=== PATIENT | female | born 1960 | race Caucasian/White ===

== ENCOUNTER 2018-10-18 19:34 | Emergency (ER) | payer OTHER ==
[2018-10-18] MEDS ORDERED: predniSONE TAB* 20 MG PO ONE (19:50)
[2018-10-18] MEDS ORDERED: Albuterol/Ipratropium NEB.SOL* Albuterol 2.5 MG/Ipratropium 0.5 MG 3 ML INH ONE (19:50)
--- NOTE | 2018-10-18 19:59 | ED ---
Respiratory - HPI Summary HPI Summary: 58 yr old female with the complaint of SOB, cough. Onset of URI symptoms cough well over a week ago with sinus congestion. Coughing up yellow sputum. Tmax 100.7 last evening. She has known COPD. She developed worsening SOB this afternoon. She has not used her proventil today. states she takes albuterol without any issues. - History of Current Complaint Chief Complaint: UCRespiratory Stated Complaint: TROUBLE BREATHING Time Seen by Provider: 10/18/18 19:46 Pain Intensity: 0 - Allergy/Home Medications Allergies/Adverse Reactions: Allergies Allergy/AdvReac Type Severity Reaction Status Date / Time Penicillins Allergy Rash Verified 10/18/18 19:45 pseudoephedrine Allergy Anxiety Verified 10/18/18 19:45 [From [facility]] Home Medications: Home Medications Acetaminophen [Tylenol Extra Strength] 1,000 mg PO DAILY 10/18/18 [History Confirmed 10/18/18] Albuterol HFA INHALER* [Ventolin HFA Inhaler*] 2 puff INH Q4H PRN 10/18/18 [ History Confirmed 10/18/18] Ascorbic Acid TAB* [Vitamin C TAB*] 500 mg PO DAILY 10/18/18 [History Confirmed 10/18/18] Aspirin 81 mg CHEW TAB* [Aspirin Low Dose TAB*] 81 mg PO DAILY 10/18/18 [ History Confirmed 10/18/18] Atorvastatin* [Lipitor*] 10 mg PO DAILY 10/18/18 [History Confirmed 10/18/18] Calcium Carbonate [[id number]] 500 mg PO BID 10/18/18 [History Confirmed 10/18] Cetirizine* [ZyrTEC 10 MG TAB*] 10 mg PO DAILY 10/18/18 [History Confirmed 10/18] Cholecalciferol TAB* [Vitamin D TAB*] 2,000 units PO DAILY 10/18/18 [History Confirmed 10/18/18] Cyclobenzaprine TAB* [Flexeril 10 MG TAB*] 5 mg PO BID PRN 10/18/18 [History Confirmed 10/18/18] Dicyclomine CAP* [Bentyl CAP*] 10 mg PO TID 10/18/18 [History Confirmed 10/18/18 ] Fluticasone NASAL SPRAY 50MCG* [Flonase NASAL SPRAY 50MCG*] 2 spray BOTH NARES DAILY 10/18/18 [History Confirmed 10/18/18] Fluticasone-Salmeterol 250-50* [Advair Diskus 250-50*] 1 puff INH BID 10/18/18 [ History Confirmed 10/18/18] Furosemide TAB* [Lasix TAB*] 20 mg PO DAILY 10/18/18 [History Confirmed 10/18/18 ] Gabapentin CAP(*) [Neurontin 300 CAP(*)] 300 mg PO BID 10/18/18 [History Confirmed 10/18/18] Guaifenesin/Pseudoephedrne HCl [Mucinex D ER 600-60 mg Tablet] 2 each PO BID 08/26 [History Confirmed 10/18/18] Lansoprazole SOLUTAB* [Prevacid SOLUTAB*] 30 mg PO BID 10/18/18 [History Confirmed 10/18/18] Lisinopril [Lisinopril 2.5 MG-] 2.5 mg PO DAILY 10/18/18 [History Confirmed 08/26] Lysine 500 mg PO DAILY 10/18/18 [History Confirmed 10/18/18] Multivitamin [Multivitamins] 1 each PO DAILY 10/18/18 [History Confirmed ] Potassium Chlor TAB* [Klor Con ER TAB*] 10 meq PO DAILY 10/18/18 [History Confirmed 10/18/18] Tiotropium CAP.INH* [Spiriva CAP.INH*] 1 cap INH DAILY 10/18/18 [History Confirmed 10/18/18] ValACYclovir (*) [Valtrex 500 mg (*)] 500 mg PO DAILY 10/18/18 [History Confirmed 10/18/18] Vitamin B Complex [Super B-50 Complex] 1 each PO DAILY 10/18/18 [History Confirmed 10/18/18] busPIRone TAB* [Buspar TAB*] 10 mg PO BID 10/18/18 [History Confirmed 10/18/18] glipiZIDE TAB* [Glucotrol TAB*] 2.5 mg PO BID 10/18/18 [History Confirmed ] metFORMIN* [Glucophage 1000 MG TAB *] 1,000 mg PO DAILY 10/18/18 [History Confirmed 10/18/18] PMH/Surg Hx/FS Hx/Imm Hx Endocrine/Hematology History: Reports: Hx Diabetes Denies: Hx Thyroid Disease Cardiovascular History: Reports: Hx Hypertension Respiratory History: Denies: Hx Asthma - Surgical History Surgery Procedure, Year, and Place: knee replacement, tubal ligation, gall bladder Infectious Disease History: No Infectious Disease History: Denies: Traveled Outside the [place] in Last 30 Days - Family History Known Family History: Positive: None - Social History Occupation: Works From/At Home Lives: With Family Alcohol Use: None Substance Use Type: Reports: None Smoking Status (MU): Former Smoker Review of Systems Positive: Fever Positive: Nasal Discharge Positive: Shortness Of Breath, Cough All Other Systems Reviewed And Are Negative: Yes Physical Exam Triage Information Reviewed: Yes Vital Signs On Initial Exam: Initial Vitals Temp Pulse Resp BP Pulse Ox 97.3 F 88 20 122/60 98 10/18/18 19:42 10/18/18 19:42 10/18/18 19:42 10/18/18 19:42 10/18/18 19:42 Vital Signs Reviewed: Yes Appearance: Positive: Well-Appearing, No Pain Distress Skin: Positive: Warm, Skin Color Reflects Adequate Perfusion Eyes: Positive: EOMI ENT: Positive: Pharynx normal, Nasal congestion, Nasal drainage, TMs normal Neck: Positive: Nontender Respiratory/Lung Sounds: Positive: Decreased Breath Sounds - bilateral. Negative: Stridor Cardiovascular: Positive: RRR. Negative: Murmur Abdomen Description: Positive: Nontender Musculoskeletal: Positive: Strength/ROM Intact. Negative: Edema Left, Edema Right Neurological: Positive: Sensory/Motor Intact, Alert, Oriented to Person Place, Time, CN Intact II-III Psychiatric: Positive: Normal - Herbert Coma Scale Best Eye Response: 4 - Spontaneous Best Motor Response: 6 - Obeys Commands Best Verbal Response: 5 - Oriented Coma Scale Total: 15 Diagnostics - Vital Signs Vital Signs Temp Pulse Resp BP Pulse Ox 10/18/18 19:42 97.3 F 88 20 122/60 98 - Laboratory Lab Statement: Any lab studies that have been ordered have been reviewed, and results considered in the medical decision making process. - Radiology chest pa lat Radiology Interpretation Completed By: ED Physician - possible CHF with pulm vasc congestion. - EKG 10/18/18 Cardiac Rate: NL EKG Rhythm: 1st Degree HB ST Segment: Normal Ectopy: None Summary of EKG Findings: No STEMI Disposition - Course Course Of Treatment: 58yr old with CHF on chest xray. DELMY Youssef NP at [facility] for transfer there for further work up. Duoneb had no effect on her SOB. - Diagnoses Provider Diagnoses: CHF (congestive heart failure), Shortness of breath Discharge - Sign-Out/Discharge Documenting (check all that apply): Patient Departure All imaging exams completed and their final reports reviewed: No - Discharge Plan Condition: Good Disposition: TRANS HIGHER LVL OF CARE FAC Referrals: Reinaldo Bates NP [Primary Care Provider] - - Billing Disposition and Condition Condition: GOOD Disposition: Trans Higher Lvl of Care Fac
[2018-10-18 20:41] VITALS: BP 149/112
== END 2018-10-18 20:45 | disposition short-term general hospital (02) ==
LOC: UCCORT 19:34
DX: I50.9 Heart failure, unspecified (principal); R06.02 Shortness of breath; Z88.0 Allergy status to penicillin; Z88.8 Allergy status to other drugs, medicaments and biological substances; E11.9 Type 2 diabetes mellitus without complications; I10 Essential (primary) hypertension; Z79.84 Long term (current) use of oral hypoglycemic drugs; Z87.891 Personal history of nicotine dependence
CPT/HCPCS: 71046; 93005; 99213; A9270-GY; G0463; J7512

== ENCOUNTER 2019-07-13 11:49 | Emergency (ER) | payer OTHER ==
[2019-07-13 12:08] VITALS: BP 132/54
--- NOTE | 2019-07-13 12:13 | UC ---
UC General HPI - HPI Summary HPI Summary: per triage, Pt was at the podiatry office earlier today, and was told BP was elevated and she had a fever. For the past 4 days pt has been feeling more fatigued, has sinus pressure and congestion. [ End ] Pt has been having sinus pain x 5 days and reports "a bloody-green drainage". She is a diabetic and has a hx of sinusitis and this is the same. Her BS is stable. - History of Current Complaint Stated Complaint: FEVER,HEADACHE,FATIGUE Time Seen by Provider: 07/13/19 12:01 Hx Obtained From: Patient Onset/Duration: Gradual Onset Timing: Constant Associated Signs & Symptoms: Negative: Fever - Allergy/Home Medications Allergies/Adverse Reactions: Allergies Allergy/AdvReac Type Severity Reaction Status Date / Time Penicillins Allergy Rash Verified 07/13/19 12:09 pseudoephedrine Allergy Anxiety Ver[facility] 07/13/19 12:09 [facility] PMH/Surg Hx/FS Hx/Imm Hx - Additional Past Medical History Additional PMH: sinusitis Endocrine History: Diabetes Cardiovascular History: Hypertension Respiratory History: COPD GI/ History: Gastroesophageal Reflux Psychological History: Depression - Surgical History Surgical History: Yes Surgery Procedure, Year, and Place: knee replacement, tubal ligation, gall bladder - Family History Known Family History: Positive: None - Social History Alcohol Use: None Substance Use Type: None Smoking Status (MU): Former Smoker Review of Systems All Other Systems Reviewed And Are Negative: Yes Constitutional: Positive: Fatigue. Negative: Fever ENT: Positive: Nasal Discharge, Sinus Congestion, Sinus Pain/Tenderness. Negative: Sore Throat, Ear Ache Respiratory: Negative: Shortness Of Breath, Cough Gastrointestinal: Negative: Abdominal Pain, Vomiting, Diarrhea, Nausea Genitourinary: Negative: Dysuria Neurological: Positive: Headache Physical Exam Triage Information Reviewed: Yes Appearance: Well-Appearing Vital Signs Reviewed: Yes Eyes: Positive: Conjunctiva Clear ENT: Positive: Pharynx normal, Nasal congestion, Nasal drainage - yellow, TMs normal, Sinus tenderness Neck: Positive: Supple, Nontender, No Lymphadenopathy Respiratory: Positive: Lungs clear, Normal breath sounds, No respiratory distress Cardiovascular: Positive: RRR, No Murmur Abdomen Description: Positive: Nontender Neurological: Positive: Alert Psychological: Positive: Age Appropriate Behavior Skin Exam: Normal Course/Dx - Diagnoses Provider Diagnosis: Sinusitis Discharge ED - Sign-Out/Discharge Documenting (check all that apply): Patient Departure All imaging exams completed and their final reports reviewed: No Studies - Discharge Plan Condition: Stable Disposition: HOME Prescriptions: DOXYcycline CAP(*) [DOXYcycline 100MG CAP(*)] 100 mg PO BID 10 Days #20 cap Patient Education Materials: Sinusitis (ED) Referrals: eRinaldo Bates NP [Primary Care Provider] - 7 Days - Billing Disposition and Condition Condition: STABLE Disposition: Home
== END 2019-07-13 12:23 | disposition home or self-care (01) ==
LOC: UCCORT 11:49
DX: J32.9 Chronic sinusitis, unspecified (principal); E11.9 Type 2 diabetes mellitus without complications; I10 Essential (primary) hypertension; Z87.891 Personal history of nicotine dependence
CPT/HCPCS: 99212; G0463

== ENCOUNTER 2019-10-21 18:53 | Emergency (ER) | payer OTHER ==
--- OUTSIDE RECORDS SUMMARY | 2019-10-21 19:02 | XMS REPORT | Summary of Care ---
:1960 Author Organization [facility] Address [address] [place] [address] Care Team Providers Name Role Phone None, Dolores Primary Care Provider Unavailable Reason for Referral Refer to Department Only (Routine) Status Reason Specialty Diagnoses / Referred By Referred To Procedures Contact Contact Authorized AUDIOLOGY & Diagnoses Hearing loss, unspecified hearing loss type, unspecified laterality Richard Song, SPEECH [facility] [place] [address] Scheduling Instructions Please schedule with Dr. Amezquita in [place] (Routine) Status Reason Specialty Diagnoses / Referred By Referred To Procedures Contact Contact Pending Review Diagnoses Diabetes mellitus without complication (HCC) Well adult exam Richard Song, Procedures URINALYSIS (LAB) WITH REFLEX CULTURE [address] [place] [id number] Reason for Visit Reason Comments New Patient pt present today to establish care, no problems, COPD Encounter Details Date Type Department Care Team Description 09/27/2019 Office Visit Richard Maria Diabetes mellitus without complication (HCC) (Primary Dx); Practice MD Decompensated chronic obstructive pulmonary disease (HCC); [address] Well adult exam; [place] [address] [place] [address] Hearing loss, unspecified hearing loss type, unspecified laterality; [phone] Lower extremity edema; [phone] Need for hepatitis C screening test (Fax) Allergies Active Allergy Reactions Severity Noted Date Comments Penicillins Rash High 09/27/2019 documented as of this encounter (statuses as of 09/27/2019) Medications Medication Sig Dispensed Refills Start Date End Date Status atorvastatin (LIPITOR) Take by mouth 0 Active 20 MG Oral Tab DAILY. Gabapentin 300 MG/6ML Take by mouth. 0 Active Oral Solution glipiZIDE (GLUCOTROL Take 2.5 mg by 0 Active XL) 2.5 MG Oral TABLET mouth DAILY. SR 24 HR Aspirin 81 MG Oral Tab Take 81 mg by 0 Active mouth. furosemide (LASIX) 20 Take 20 mg by 0 Active MG Oral Tab mouth DAILY. B Take by mouth. 0 Active Ultopiw-J-Hbkdic-D-Zinc -FA (VITAL-D RX PO) metFORMIN HCL 1000 MG Take by mouth. 0 Active Oral Tab potassium Take 15 mL by 0 Active citrate-citric acid mouth DAILY. (POLYCITRA-K) 1100-334 MG/5ML Oral Solution lisinopril (PRINIVIL, Take 2.5 mg by 0 Active ZESTRIL) 2.5 MG Oral mouth DAILY. Tab Dicyclomine HCl 10 Take by mouth. 0 Active MG/5ML Oral Solution SUPER B COMPLEX/C PO Take by mouth. 0 Active Cholecalciferol Take by mouth. 0 Active (VITAMIN D3) 1.25 MG (00257 UT) Oral Cap Pediatric Take by mouth. 0 Active Multivitamins-Fl (MULTI VIT/FL) 0.25 MG Oral Chew Tab Lansoprazole 15 MG Oral Take 15 mg by 0 Active CAPSULE DELAYED RELEASE mouth. sitagliptin (JANUVIA) Take 100 mg by 0 Active 100 MG Oral Tab mouth. CETIRIZINE HCL PO Take by mouth. 0 Active busPIRone (BUSPAR) 10 Take 10 mg by 0 Active MG Oral Tab mouth THREE TIMES DAILY. FLUTICASONE FUROATE IN Take by 0 Active inhalation. albuterol HFA (VENTOLIN Take 2 Puffs by 0 Active HFA) 108 (90 Base) inhalation. MCG/ACT Inhalation Aero Soln ALBUTEROL IN Take by 0 Active inhalation. Tiotropium [place] Take by 0 Active Monohydrate (SPIRIVA inhalation. HANDIHALER IN) fluticasone-salmeterol Take 1 INHL by 0 Active diskus (ADVAIR) 100-50 inhalation TWICE MCG/DOSE Inhalation DAILY. AEROSOL POWDER, BREATH ACTIVATED documented as of this encounter (statuses as of 09/27/2019) Active Problems Problem Noted Date Decompensated chronic obstructive pulmonary disease 09/27/2019 Diabetes mellitus without complication 09/27/2019 Anxiety 09/27/2019 Chronic pain 09/27/2019 Benign hypertension 09/27/2019 Bilateral edema of lower extremity 09/27/2019 Allergies 09/27/2019 Mixed hyperlipidemia 09/27/2019 documented as of this encounter (statuses as of 09/27/2019) Social History Tobacco Use Types Packs/Day Years Used Date Former Smoker 0 20 Smokeless Tobacco: Never Used Alcohol Use Drinks/Week oz/Week Comments Yes social Sex Assigned at Date Recorded Not on file Job Start Date Occupation Industry Not on file Not on file Not on file Travel History Travel Start Travel End No recent travel history available. documented as of this encounter Last Filed Vital Signs Vital Sign Reading Time Taken Comments Blood Pressure 126/56 09/27/2019 1:45 PM EST Pulse 87 09/27/2019 1:45 PM EST Temperature - - Respiratory Rate - - Oxygen Saturation 97% 09/27/2019 1:45 PM EST Inhaled Oxygen Concentration - - Weight 111.6 kg (246 lb) 09/27/2019 1:45 PM EST Height 170.2 cm (5' 7") 09/27/2019 1:45 PM EST Body Mass Index 38.53 09/27/2019 1:45 PM EST documented in this encounter Progress Notes Richard Song MD - 09/27/2019 1:45 PM EST PATIENT: Roxanne Koch : 1960 DATE OF SERVICE: 09/27/2019 CHIEF COMPLAINT: Chief Complaint Patient presents with New Patient pt present today to establish care, no problems, COPD Subjective HISTORY OF PRESENT ILLNESS: Roxanne Koch is a 59-y.o. female. Pt here to establish care and to have her left foot evaluated. Pt has multiple chronic health concerns including diabetes, COPD, anxiety, hypercholesterol, Hypertension and lower extremity edema. Main concern is her left foot--with discoloration and when it swells a lot, her vein pops out with the middle three toes go numb. He has a herniated disc in her back that also causes concern-- right foot is numb. Has spinal injections scheduled for Oct 11. She is the primary caregiver to a disabled son--36 y/o with CP from chromosomal abnormality. Past Medical History: Diagnosis Date Arthritis R hand COPD (chronic obstructive pulmonary disease) (HCC) 2019 Herniated disc, cervical L1 and L2 and L3 and L4 Family History Problem Relation Age of Onset Aneurysm Brother Current Outpatient Medications Medication Sig albuterol HFA (VENTOLIN HFA) 108 (90 Base) MCG/ACT Inhalation Aero Soln Take 2 Puffs by inhalation. ALBUTEROL IN Take by inhalation. Aspirin 81 MG Oral Tab Take 81 mg by mouth. atorvastatin (LIPITOR) 20 MG Oral Tab Take by mouth DAILY. B Fqivonp-B-Iubqrg-D-Zinc-FA (VITAL-D RX PO) Take by mouth. busPIRone (BUSPAR) 10 MG Oral Tab Take 10 mg by mouth THREE TIMES DAILY. CETIRIZINE HCL PO Take by mouth. Cholecalciferol (VITAMIN D3) 1.25 MG (15747 UT) Oral Cap Take by mouth. Dicyclomine HCl 10 MG/5ML Oral Solution Take by mouth. FLUTICASONE FUROATE IN Take by inhalation. fluticasone-salmeterol diskus (ADVAIR) 100-50 MCG/DOSE Inhalation AEROSOL POWDER, BREATH ACTIVATED Take 1 INHL by inhalation TWICE DAILY. furosemide (LASIX) 20 MG Oral Tab Take 20 mg by mouth DAILY. Gabapentin 300 MG/6ML Oral Solution Take by mouth. glipiZIDE (GLUCOTROL XL) 2.5 MG Oral TABLET SR 24 HR Take 2.5 mg by mouth DAILY. Lansoprazole 15 MG Oral CAPSULE DELAYED RELEASE Take 15 mg by mouth. lisinopril (PRINIVIL, ZESTRIL) 2.5 MG Oral Tab Take 2.5 mg by mouth DAILY. metFORMIN HCL 1000 MG Oral Tab Take by mouth. Pediatric Multivitamins-Fl (MULTI VIT/FL) 0.25 MG Oral Chew Tab Take by mouth. potassium citrate-citric acid (POLYCITRA-K) 1100-334 MG/5ML Oral Solution Take 15 mL by mouthDAILY. sitagliptin (JANUVIA) 100 MG Oral Tab Take 100 mg by mouth. SUPER B COMPLEX/C PO Take by mouth. Tiotropium [place] Monohydrate (SPIRIVA HANDIHALER IN) Take by inhalation. No current facility-administered medications for this visit. Allergies Allergen Reactions Penicillins Rash Social History Socioeconomic History Marital status: Spouse name: Not on file Number of children: Not on file Years of education: Not on file Highest education level: Not on file Occupational History Not on file Social Needs Financial resource strain: Not on file Food insecurity: Worry: Not on file Inability: Not on file Transportation needs: Medical: Not on file Non-medical: Not on file Tobacco Use Smoking status: Former Smoker Packs/day: 0.00 Years: 20.00 Pack years: 0.00 Smokeless tobacco: Never Used Substance and Sexual Activity Alcohol use: Yes Comment: social Drug use: Never Sexual activity: Not Currently Lifestyle Physical activity: Days per week: Not on file Minutes per session: Not on file Stress: Not on file Relationships Social connections: Talks on phone: Not on file Gets together: Not on file Attends synagogue service: Not on file Active member of club or organization: Not on file Attends meetings of clubs or organizations: Not on file Relationship status: Not on file Intimate partner violence: Fear of current or ex partner: Not on file Emotionally abused: Not on file Physically abused: Not on file Forced sexual activity: Not on file Other Topics Concern Not on file Social History Narrative Not on file Over the last 2 weeks, have you been feeling down, depressed, anxious, or hopeless?: 0 Over the past 2 weeks, have you felt little interest or pleasure in doing things ?: 0 REVIEW OF SYSTEMS: Review of Systems Constitutional: Negative for chills, diaphoresis, fever and weight loss. HENT: Negative for congestion, ear pain, hearing loss, sinus pain, sore throat and tinnitus. Eyes: Negative for blurred vision, double vision and discharge. Respiratory: Positive for cough and shortness of breath. Negative for sputum production and wheezing. Cardiovascular: Negative for chest pain, palpitations, orthopnea and leg swelling. Gastrointestinal: Positive for diarrhea (IBS-Loose stools). Negative for abdominal pain, blood in stool, constipation, heartburn, nausea and vomiting. Genitourinary: Negative for dysuria, flank pain, frequency, hematuria and urgency. Musculoskeletal: Positive for back pain. Negative for joint pain (bilateral knee repacements done). Skin: Negative for itching and rash. Neurological: Positive for sensory change. Negative for dizziness, tremors, weakness and headaches. Endo/Heme/Allergies: Negative for polydipsia. Psychiatric/Behavioral: Negative for depression and suicidal ideas. The patient is nervous/anxious and has insomnia. Objective PHYSICAL EXAM: VITALS: BP 126/56 (BP Location: Left arm, Patient Position: Sitting) | Pulse 87 | Ht 5' 7" (1.702m) | Wt 246 lb (111.6 kg) | SpO2 97% | BMI 38.53 kg/m Body mass index is 38.53 kg/m. Physical Exam Vitals signs and nursing note reviewed. Constitutional: General: She is not in acute distress. Appearance: Normal appearance. She is obese. She is not ill-appearing, toxic- appearing or diaphoretic. HENT: Head: Normocephalic and atraumatic. Right Ear: Tympanic membrane, ear canal and external ear normal. There is no impacted cerumen. Left Ear: Tympanic membrane, ear canal and external ear normal. There is no impacted cerumen. Nose: Nose normal. No congestion or rhinorrhea. Mouth/Throat: Mouth: Mucous membranes are moist. Pharynx: Oropharynx is clear. No oropharyngeal exudate or posterior oropharyngeal erythema. Eyes: General: No scleral icterus. Extraocular Movements: Extraocular movements intact. Conjunctiva/sclera: Conjunctivae normal. Pupils: Pupils are equal, round, and reactive to light. Neck: Musculoskeletal: Normal range of motion. No neck rigidity or muscular tenderness. Vascular: No carotid bruit. Cardiovascular: Rate and Rhythm: Normal rate and regular rhythm. Pulses: Normal pulses. Heart sounds: No murmur. No friction rub. No gallop. Pulmonary: Effort: Pulmonary effort is normal. Breath sounds: Normal breath sounds. No wheezing, rhonchi or rales. Abdominal: General: Abdomen is flat. Bowel sounds are normal. There is no distension. Palpations: Abdomen is soft. There is no mass. Tenderness: There is no tenderness. There is no guarding or rebound. Hernia: No hernia is present. Musculoskeletal: Normal range of motion. Right lower leg: No edema. Left lower leg: No edema. Lymphadenopathy: Cervical: No cervical adenopathy. Skin: General: Skin is warm and dry. Coloration: Skin is ashen (left foot). Skin is not cyanotic. Findings: No abrasion, erythema, signs of injury or lesion. Rash is not crusting or macular. Nails: There is no clubbing. Comments: Increased varicosities in the bilateral lower extremities below the knees. Left foot with large vein on the upper foot. Slight discoloration ( ashen) to the left foot. Neurological: General: No focal deficit present. Mental Status: She is alert and oriented to person, place, and time. Sensory: Sensory deficit (slight decrease in sensation of the outer part of the right foot, dorsal aspect of right foot and inner aspect of the left foot to filament test) present. Motor: Motor function is intact. Psychiatric: Mood and Affect: Mood normal. Behavior: Behavior normal. ASSESSMENT / IMPRESSION: 1. Diabetes mellitus without complication (HCC) Need to reassess where she is in her diabetes. Follow up in 4 months. - GLYCOHEMOGLOBIN A1C; Future - LIPID PROFILE; Future - URINALYSIS (LAB) WITH REFLEX CULTURE; Future - MICROALBUMIN, RANDOM URINE W/ CREATININE; Future 2. Decompensated chronic obstructive pulmonary disease (HCC) Stable. Continue current regimen. 3. Well adult exam - GLYCOHEMOGLOBIN A1C; Future - HEPATITIS C ANTIBODY WITH RELEX RNA, RT PCR; Future - CBC NO DIFFERENTIAL; Future - COMPREHENSIVE METABOLIC PANEL; Future - LIPID PROFILE; Future - URINALYSIS (LAB) WITH REFLEX CULTURE; Future - MICROALBUMIN, RANDOM URINE W/ CREATININE; Future 4. Hearing loss, unspecified hearing loss type, unspecified laterality - REFER TO AUDIOLOGY; Future 5. Lower extremity edema Continue current meds. I believe this is due to her knee replacement surgery and /or diabetes but will await testing. 6. Need for hepatitis C screening test Will check at lab draw. Plan As above. Author: Richard Song MD 09/27/2019 14:19 documented in this encounter Plan of Treatment Name Type Priority Associated Diagnoses Order Schedule GLYCOHEMOGLOBIN A1C Lab Routine Diabetes mellitus Expected: 09/27/2019 without complication (Approximate), (HCC) Expires: 09/27/2020 Well adult exam HEPATITIS C ANTIBODY WITH Lab Routine Well adult exam Expected: 09/27/2019 RELEX RNA, RT PCR (Approximate), Expires: 09/27/2020 CBC NO DIFFERENTIAL Lab Routine Well adult exam Expected: 09/27/2019 (Approximate), Expires: 09/27/2020 COMPREHENSIVE METABOLIC Lab Routine Well adult exam Expected: 09/27/2019 PANEL (Approximate), Expires: 09/27/2020 LIPID PROFILE Lab Routine Diabetes mellitus Expected: 09/27/2019 without complication (Approximate), (HCC) Expires: 09/27/2020 Well adult exam URINALYSIS (LAB) WITH Lab Routine Diabetes mellitus Expected: 09/27/2019 REFLEX CULTURE without complication (Approximate), (HCC) Expires: 03/25/2020 Well adult exam MICROALBUMIN, RANDOM URINE Lab Routine Diabetes mellitus Expected: 2018 W/ CREATININE without complication (Approximate), (HCC) Expires: 03/25/2020 Well adult exam Name Type Priority Associated Diagnoses Order Schedule REFER TO AUDIOLOGY Referral Routine Hearing loss, unspecified Expected: , hearing loss type, Expires: 09/27/2020 unspecified laterality Health Maintenance Due Date Last Done Comments Diabetic Eye Exam 1960 HEMOGLOBIN A1C 1960 PAP SMEAR 1960 PNEUMOCOCCAL 0-64 YRS (1 of 1 - 1965 PPSV23) FOOT EXAM 1977 HEPATITIS C SCREENING 1999 MAMMOGRAM (SCREENING) 1999 COLONOSCOPY SCREENING 2009 ZOSTER IMMUNIZATION SERIES (1 of 2009 2) INFLUENZA VACCINE (#1) 2019 DEPRESSION SCREENING 09/27/2020 09/27/2019 LIPID DISORDER SCREENING 09/27/2020 09/27/2019 HPV IMMUNIZATION SERIES Aged Out No longer eligible based on patient's age to complete this topic MENINGOCOCCAL VACCINE IMM Aged Out No longer eligible based on patient's age to complete this topic documented as of this encounter Goals Goal Patient Goal Associated Recent Patient-Stated? Author Type Problems Progress Blood Pressure Blood Pressure 126/56 No Duncan, < 140/90 (09/27/2019 MD Richard 1:45 PM EST) Note: This is an individualized treatment (blood pressure) goal for Roxanne Koch: Displayed above (on the left) is your goal for blood pressure control. Your most recent blood pressure is also shown above, on the right. You should try to achieve blood pressures that are lower than your goal listed above (on the left). Glycohemoglobin A1c < 7.0 Diabetes No Richard Song MD Note: This is an individualized treatment (diabetes control, HgbA1C) goal for Roxanne Koch: Displayed above is your progress towards your HgbA1C goal. Your goal is shown above (on the left); your most recent HgbA1C is shown on the right. Note that lower numbers are better. Weight loss vs. 18 mo Lifestyle 0 (09/27/2019 1:45 PM EST) Richard Chaudhry MD max (lbs) >= 10 Note: This is an individualized lifestyle goal for Roxanne Koch: Your body mass index (BMI) is more than 30. You should lose weight. A reasonable starting goal is to lose 10 pounds. Displayed above is how many pounds you have lost thus far towards your 10 pound weight loss goal. Keep immunizations current Lifestyle Richard Chaudhry MD Note: This is an individualized lifestyle goal for Roxanne Koch: Please be sure to keep up-to-date on recommended immunizations. For example, this would include a yearly influenza vaccine. Immunization status can be seen by looking at the Health Maintenance sections of your [facility], Plan of Care, and any After Visit Summaries. Take all prescribed medications as directed Self-management Richard Chaudhry MD Note: This is an individualized self-management goal for Roxanne Koch: Please take all prescribed medications as directed. 1. Do not skip doses. If you cannot afford your medications, talk with your doctor. 2. Use a pill reminder system such as a pill box if needed. Your pharmacist can help you with this. 3. Contact your Pharmacy 5 days before your medication runs out. If you cannot take your medications for any reasons, talk with your doctor. 4. Please bring all of your medication bottles and inhalers (or a list of all your medications/inhalers) with you to every visit. Potential barriers to meeting all of your care plan goals will continue to be addressed on an ongoing basis. documented as of this encounter Results Not on filedocumented in this encounter Visit Diagnoses Diagnosis Diabetes mellitus without complication (HCC) - Primary Type II or unspecified type diabetes mellitus without mention of complication, not stated as uncontrolled Decompensated chronic obstructive pulmonary disease (HCC) Obstructive chronic bronchitis with exacerbation Well adult exam Routine general medical examination at a health care facility Hearing loss, unspecified hearing loss type, unspecified laterality Lower extremity edema Edema Need for hepatitis C screening test Special screening examination for other specified viral diseases documented in this encounter
[2019-10-21 19:09] VITALS: BP 131/57
--- NOTE | 2019-10-21 19:32 | UC ---
Throat Pain/Nasal Julio HPI - HPI Summary HPI Summary: Pt presents with c/o nasal congestion, sinus pressure and pain, ST, "burning mouth" and generalized malaise X 7-8 days. - History of Current Complaint Chief Complaint: UCRespiratory Stated Complaint: SORE THROAT Time Seen by Provider: 10/21/19 19:17 Hx Obtained From: Patient ?: No Onset/Duration: Sudden Onset, Lasting Days, Still Present, Worse Since - onset Severity: Moderate Pain Intensity: 0 Cough: None Associated Signs & Symptoms: Positive: Sinus Discomfort - Epiglottits Risk Factors Epiglottis Risk Factors: Negative - Allergies/Home Medications Allergies/Adverse Reactions: Allergies Allergy/AdvReac Type Severity Reaction Status Date / Time Penicillins Allergy Rash Verified 10/21/19 19:04 pseudoephedrine Allergy Anxiety Verified 10/21/19 19:04 [From [facility]] PMH/Surg Hx/FS Hx/Imm Hx Previously Healthy: Yes - Surgical History Surgical History: Yes Surgery Procedure, Year, and Place: Cholecystectomy, 2008, [place]; Bilateral TKA, early , [place]; Tubal Ligation, 1982, [place] - Family History Known Family History: Positive: Cardiac Disease - Social History Occupation: Works From/At Home Lives: With Family Alcohol Use: None Substance Use Type: None Smoking Status (MU): Former Smoker Length of Time of Smoking/Using Tobacco: 1 PPD x 28 Years Have You Smoked in the Last Year: No When Did the Patient Quit Smoking/Using Tobacco: ~1998 Review of Systems All Other Systems Reviewed And Are Negative: Yes Constitutional: Positive: Chills, Fatigue Skin: Positive: Negative Eyes: Positive: Negative ENT: Positive: Sinus Congestion, Sinus Pain/Tenderness, Other - burning mouth" Respiratory: Positive: Negative Cardiovascular: Positive: Negative Gastrointestinal: Positive: Negative Genitourinary: Positive: Negative Motor: Positive: Negative Neurovascular: Positive: Negative Musculoskeletal: Positive: Negative Neurological: Positive: Negative Psychological: Positive: Negative Is Patient Immunocompromised?: No Physical Exam Triage Information Reviewed: Yes Appearance: Ill-Appearing Vital Signs: Initial Vital Signs Temp 98.1 F 10/21/19 19:02 Pulse 76 10/21/19 19:02 Resp 20 10/21/19 19:02 BP 131/57 10/21/19 19:02 Pulse Ox 97 10/21/19 19:02 Vital Signs Reviewed: Yes Eye Exam: Normal ENT: Positive: Sinus tenderness, Other - graphic tongue Dental: Positive: Other: - missing upper teeth Neck exam: Normal Neck: Positive: Supple, Nontender Respiratory Exam: Normal Cardiovascular Exam: Normal Musculoskeletal Exam: Normal Neurological Exam: Normal Psychological Exam: Normal Skin Exam: Normal Throat Pain/Nasal Course/Dx - Differential Dx/Diagnosis Differential Diagnosis/HQI/PQRI: Pharyngitis, Sinusitis, Tonsillitis, Other - strep throat Provider Diagnosis: Sinusitis Discharge ED - Sign-Out/Discharge Documenting (check all that apply): Patient Departure All imaging exams completed and their final reports reviewed: No Studies - Discharge Plan Condition: Stable Disposition: HOME Prescriptions: Azithromycin TAB* [Zithromax TAB (Z-PAWAN) 250 mg #6 tabs] 2 tab PO .TODAY, THEN 1 DAILY #1 pawan Patient Education Materials: Sinusitis (ED) Referrals: Richard Song MD [Primary Care Provider] - If Needed Additional Instructions: Please follow up with your PCP as needed. If your symptoms do not improve, please seek care as soon as possible. - Billing Disposition and Condition Condition: STABLE Disposition: Home - Attestation Statements Provider Attestation: I was available for consult. This patient was seen by the FUNMILAYO. The patient was not presented to, seen by, or examined by me. -Wayne
== END 2019-10-21 19:54 | disposition home or self-care (01) ==
LOC: UCCORT 18:53
DX: J32.9 Chronic sinusitis, unspecified (principal); R53.81 Other malaise; Z87.891 Personal history of nicotine dependence; Z88.0 Allergy status to penicillin; Z88.8 Allergy status to other drugs, medicaments and biological substances
CPT/HCPCS: 87651; 99212; G0463

== ENCOUNTER 2019-12-02 11:12 | Emergency (ER) | payer OTHER ==
[2019-12-02 12:08] VITALS: BP 133/51
[2019-12-02 12:18] LABS: Influenza A Molecular POSITIVE (Negative)
--- NOTE | 2019-12-02 12:36 | UC ---
HPI Febrile Illness - HPI Summary HPI Summary: Pt presents to states this morning woke with congestion, body aches, fevers, nausea. Pt with post tussive emesis x 1 - non blood, non black. No diarrhea. PT took APAP earlier No chest pain. + clear sputum Denies sob, cp. Pt's is inpt with [facility] at [facility]. Pt's medications as entered in the EMR by floor assembler reviewed this visit - History of Current Complaint Chief Complaint: UCRespiratory Time Seen by Provider: 12/02/19 12:30 Hx Obtained From: Patient Pain Intensity: 0 - Allergy/Home Medications Allergies/Adverse Reactions: Allergies Allergy/AdvReac Type Severity Reaction Status Date / Time Penicillins Allergy Rash Verified 12/02/19 11:59 pseudoephedrine Allergy Anxiety Verified 12/02/19 11:59 [From Sudafed] PMH/Surg Hx/FS Hx/Imm Hx Previously Healthy: Yes - allergies Endocrine History: Diabetes GI/ History: Gastroesophageal Reflux - Surgical History Surgical History: Yes Surgery Procedure, Year, and Place: Cholecystectomy, 2008, [place]; Bilateral TKA, early , [place]; Tubal Ligation, 1982, [place] - Family History Known Family History: Positive: None, Cardiac Disease, Non-Contributory - Social History Occupation: Unemployed Lives: With Family Alcohol Use: None Substance Use Type: None Smoking Status (MU): Former Smoker Length of Time of Smoking/Using Tobacco: 1 PPD x 28 Years Have You Smoked in the Last Year: No When Did the Patient Quit Smoking/Using Tobacco: ~1998 Review of Systems All Other Systems Reviewed And Are Negative: Yes Constitutional: Positive: Fever, Fatigue Skin: Positive: Negative Eyes: Positive: Negative ENT: Positive: Nasal Discharge, Sinus Congestion, Sinus Pain/Tenderness Respiratory: Positive: Cough Cardiovascular: Positive: Negative Gastrointestinal: Positive: Vomiting, Nausea. Negative: Abdominal Pain, Diarrhea Physical Exam - Summary Physical Exam Summary: Vital Signs Reviewed: Yes A+Ox3, tired appearing Eyes: Conjunctiva Clear, WENDIE. EOM intact and ful ENT: Hearing grossly normal TM x 2 clear, turbinatesi nflammed and boggy, + PND , mmoist, uvula midline, no exudate, no erythema Neck: Positive: Supple, Full AROM Respiratory: Positive: No respiratory distress, No accessory muscle use + coarse cough, no wheeze Cardiovascular: RRR nl s1, s2 no m/r CBT <2 sec abd soft + BS nt/nd no guarding, no distension Musculoskeletal Exam: RODRIGUES x 4 without difficulty Strength Intact, ROM Intact Neurological: Positive: Alert, + sensation throughout Psychological: Positive: Normal Response To database management system specialist Skin: Positive: no rash, no ecchymosis Vital Signs: Initial Vital Signs Temp 99 F 12/02/19 12:03 Pulse 114 12/02/19 12:03 Resp 20 12/02/19 12:03 BP 133/51 12/02/19 12:03 Pulse Ox 96 12/02/19 12:03 Course/Dx - Course Course Of Treatment: Pt presents to reporting body aches, fevers, congestion, cough and emesis started abruptly this morning. Pt son with similar sx, in hospital with PNA On exam, VS reviewed pt appears tired with intermittent coarse cough no increased RR, no wheeze PT + influenza reviewed with pt humidified air hydrate - pt drinking water in room without difficulty motrin/apap OTC products Tamiflu return precautions PTcomfortable and in agreement with plan - Diagnoses Provider Diagnosis: Influenza Discharge ED - Sign-Out/Discharge Documenting (check all that apply): Patient Departure All imaging exams completed and their final reports reviewed: No Studies - Discharge Plan Condition: Stable Disposition: HOME Prescriptions: Oseltamivir Phosphate [Tamiflu] 75 mg PO BID #10 capsule Patient Education Materials: Influenza (ED) Referrals: Richard Song MD [Primary Care Provider] - Additional Instructions: - Stay well hydrated. Drink plenty of non-alcoholic, non-caffinated beverages. - Take Tamiflu 2 times a day as prescribed until gone - Alternate ibuprofen (Advil, Motrin) 600mg and Tylenol 1000mg every 3 hours for pain or fever. Take with food. Do NOT take for more than 4-5 days. - These infections are spread by secretions - do NOT share eating or drinking utensils - clean items you share with other people such as cell phones, computer mouse, TV remote, computer tablets,etc. Once you start to feel better, change your toothbrush and your pillowcase. - get plenty of restful sleep - use your inhaler, 2 puffs every 4 hours, as needed for cough or wheeze - humidify the air in the room where you sleep - boil water, run a hot steam shower, vaporizer, cups of water by heat register - okay to take over the counter decongestant and cough medication - contact your doctor or return with questions or concerns - Billing Disposition and Condition Condition: STABLE Disposition: Home
== END 2019-12-02 12:49 | disposition home or self-care (01) ==
LOC: UCCORT 11:12
DX: J11.1 Influenza due to unidentified influenza virus with other respiratory manifestations (principal); E11.9 Type 2 diabetes mellitus without complications; Z88.0 Allergy status to penicillin; Z88.8 Allergy status to other drugs, medicaments and biological substances; Z87.891 Personal history of nicotine dependence
CPT/HCPCS: 99212; G0463